=== PATIENT | male | born 1990 | race Caucasian/White ===

== ENCOUNTER 2017-01-18 20:47 | Emergency (ER) | payer OTHER ==
[2017-01-18 20:58] VITALS: RESP 16; TEMP 98.4
[2017-01-18] MEDS ORDERED: HYDROCOD/APAP 5/325 PREPACK#6 BTL TAKEHOME ONE (21:21)
[2017-01-18] MEDS ORDERED: DIAZEPAM 5 MG TAB PO ONE (21:21)
[2017-01-18] MEDS ORDERED: HYDROCODONE/APAP 5/325 TAB PO ONE (21:21)
[2017-01-18] MEDS ORDERED: DIAZEPAM 5 MG PREPACK#4 BTL TAKEHOME ONE (21:22)
--- NOTE | 2017-01-18 21:25 | EDPHY ---
H & P Time Seen by Provider: 01/18/17 20:50 HPI/ROS: This patient was lifting weights-doing lifts, squats and press and then twisted while bending over the 45 lb weight and felt abrupt onset of lumbar paraspinous pain bilaterally left slightly more than right. He explains that he is been not working out over the past year due to a shoulder surgery and infection. He just started lifting in 3 weeks ago. The incident occurred today at 1:00 p.m.. He saw a chiropractor at 2:00 p.m. he felt like his sacrum was out of place did some adjustments. The patient took 3 Aleve at 2:00 p.m. and reports the had onset of back muscle spasm and difficulty getting up from a lying position due to the pain in his low back. His spouse had to help him up to come in for evaluation. He reports that while in a neutral position at baseline he currently has moderate pain becomes severe with muscle spasm and movement. He has not had any pain medication since the leave. He notes no radiation of the pain from the paraspinous location. ROS: No fevers chills or other constitutional symptoms recently. Neuro: No numbness tingling focal weakness, bowel or bladder incontinence. Musculoskeletal: No midline pain. No extremity injuries. 5 point ROS is otherwise negative Past Medical/Surgical History: The patient had a right shoulder surgery with cadaver ligament that went up becoming infected with strep and staph. He had have shoulder surgery and a PICC line for IV antibiotics for prolonged period of time over the past year. He is now asymptomatic with his right shoulder. He has had 1 previous low back strain of less intensity. Otherwise healthy Smoking Status: Former smoker Physical Exam: Physical Exam Vital signs are normal. General: No acute distress HEENT: Atraumatic. Neck: No midline tenderness, supple Eyes: Pupils equal and react to light. Extraocular motions are intact. Lungs: No respiratory distress. Back: No midline tenderness. He does have lumbar paraspinous tenderness left than right with limited range of motion in forward flexion due to the pain. Most of the tenderness and pain is left lumbar paraspinous. He has increased pain with lateral flexion away from the affected side and no change in pain with flexion toward the affected side. He can extend backward without much difficulty. Straight leg raise is negative bilaterally. Cardiac: Brisk capillary refill is intact throughout. Abdomen: Soft, nontender, no pulsatile masses Skin: No rash or pallor. Neuro: GCS 15. He maintains normal light touch sensation bilateral lower extremities and 5/5 strength in great toe dorsiflexion plantar flexion bilaterally with 2+ symmetric patellar and Achilles DTRs bilaterally. Initial differential diagnosis: Low back strain, disc herniation, doubt bony abnormality, spinal abscess or other Constitutional: Initial Vital Signs Temperature (C) 36.9 C 01/18/17 20:48 Heart Rate 70 01/18/17 20:48 Respiratory Rate 16 01/18/17 20:48 Blood Pressure 123/69 H 01/18/17 20:48 O2 Sat (%) 95 01/18/17 20:48 O2 Delivery Mode Room Air Allergies/Adverse Reactions: No Known Allergies Allergy (Verified 01/18/17 20:58) Home Medications: Medication Instructions Recorded Hydrocodone/APAP 5/325 [[place] 1 - 2 tab PO Q4PRN PRN #15 tab 01/18/17 5/325 (*)] Methocarbamol [Robaxin 750 mg (*)] 750 - 1,500 mg PO QID PRN #30 tab 01/18/17 MDM/Departure - MDM Medications Given: Discontinued Medications Hydrocodone Bitart/Acetaminophen ([place] 5/325) 1 tab PO EDNOW ONE Stop: 01/18/17 21:22 Last Admin: 01/18/17 21:28 Dose: 1 tab Diazepam (Valium) 5 mg PO EDNOW ONE Stop: 01/18/17 21:22 Last Admin: 01/18/17 21:28 Dose: 5 mg Diazepam (Valium 5 Mg Prepack#4) 1 btl TAKEHOME EDNOW ONE Stop: 01/18/17 21:23 Last Admin: 01/18/17 21:28 Dose: 1 btl ED Course/Re-evaluation: Vicodin and Valium p.o. for pain control Demonstrated low back stretches and strengthening exercises and counseled regarding low back strain. Discussion: I think this patient fatigued his back after lifting weights after deconditioning from his previous surgery and then strained while twisting and bending with 45 lb weight. He has no evidence of cauda equina, bony injury, radiculopathy or other concerning findings currently. - Depart Disposition: Home, Routine, Self-Care Clinical Impression: Low back strain Qualifiers: Encounter type: initial encounter Qualified Code(s): S39.012A - Strain of muscle, fascia and tendon of lower back, initial encounter Condition: Good Instructions: Hydrocodone/Acetaminophen (By mouth), Low Back Strain (ED) Additional Instructions: DX: Low back strain Plan: Ibuprofen 400-600 mg per 6 hours regularly for the next week then as needed. Methocarbamol muscle relaxants as needed. Vicodin or Tylenol as needed for pain. No driving alcohol or work on Vicodin. Starts daily stretches prior to taking muscle relaxants and Vicodin in the morning. 3-5 minutes each of: "Butterfly stretch," "Sphinx stretch", "pigeon stretch", and hamstring stretch. Avoid lifting more than 5-10 pounds until symptoms improve. Call your primary care physician for a followup appointment in 3-7 days. Go to the emergency department for worsening of your symptoms despite the treatment plan. Prescriptions: Hydrocodone/APAP 5/325 [[place] 5/325 (*)] 1 - 2 tab PO Q4PRN PRN #15 tab PRN Reason: Pain Methocarbamol [Robaxin 750 mg (*)] 750 - 1,500 mg PO QID PRN #30 tab PRN Reason: Muscle Spasms Referrals: NONE *PRIMARY CARE P,. [Primary Care Provider] - As per Instructions Sam Erickson MD [Medical Doctor] - As per Instructions
[2017-01-18 21:44] VITALS: BP 125/64; PULSE 68; O2SAT 98
== END 2017-01-18 21:38 | disposition home or self-care (01) ==
LOC: CED 20:47
DX: S39.012A Strain of muscle, fascia and tendon of lower back, initial encounter (principal); Z87.891 Personal history of nicotine dependence; X50.0XXA Overexertion from strenuous movement or load, initial encounter; Y99.8 Other external cause status; Y93.89 Activity, other specified